=== PATIENT | male | born 1945 | race Caucasian/White ===

== ENCOUNTER 2018-11-24 10:37 | Emergency (ER) | payer MEDICAID ==
[2018-11-24] MEDS: SILVER SULFADIAZINE 1% 25 GM CR TOP (13:08)
== END 2018-11-24 13:59 | disposition home or self-care (01) ==
LOC: FTE 10:37
DX: E11.621 Type 2 diabetes mellitus with foot ulcer (principal); I10 Essential (primary) hypertension; L97.519 Non-pressure chronic ulcer of other part of right foot with unspecified severity; Z79.4 Long term (current) use of insulin
CPT/HCPCS: 99283; Z7502